=== PATIENT | male | born 1985 | race Caucasian/White ===

== ENCOUNTER 2025-01-16 02:17 | Emergency (ER) | payer MEDICARE, MEDICAID ==
[~2025-01-16] VITALS: Ht 172.7 cm; Wt 77.1 kg
[2025-01-16] MEDS: LORazepam 2MG/ML-1ML VIAL IV ONE (02:55)
--- NOTE | 2025-01-16 02:57 | ED.PDOC ---
HPI (NEURO) HPI Comments 39-year-old, developmentally delayed male is brought in by brother/[facility] nurse for chief complaint of seizure-like activities. Per brother, patient had 2x sudden and provoked seizure-like activity episodes over the past 2-1/2 hours, this morning. Patient has a history of remote seizures in the past after being taken off psychiatric medications in 2011 both never given a permanent prescription aside from being treated with gabapentin, initially. No reported trauma or incontinence. No recent injuries or for pertinent events or history endorsed. No further acute symptoms reported. Time Seen by MD: 02:30 Reviewed Notes: Nurses Notes, Speech And Language Clinician Notes, Medications, Allergies Information Source: Relative (Sibling) Mode of Arrival: EMS Timing: Hours Duration: Minutes Past Medical History PAST MEDICAL HISTORY: Seizures Past Medical History (Other): Developmentally delayed Surgical History: Denies all surgeries Family History Family History: Unobtainable Social History Smoker: Non-Smoker Alcohol: Denies ETOH Use Drugs: Denies Drug Use Lives In: Home, Assisted Care All Other Systems: Reviewed and Negative (Comprehensive review of systems are negative unless otherwise stated in HPI) Physical Exam General Appearance: No Apparent Distress, Normal, Other (Developmentally delayed ) HEENT: Normal ENT Inspection, Pharynx Normal, TMs Normal Neck: Full Range of Motion, Non-Tender, Normal, Normal Inspection Respiratory: Chest Non-Tender, Lungs Clear, No Accessory Muscle Use, No Respiratory Distress, Normal Breath Sounds Cardiovascular: No Edema, No JVD, No Murmur, No Gallop, Normal Peripheral Pulses, Regular Rate/Rhythm Breast Exam: Deferred Gastrointestinal: No Organomegaly, Non Tender, No Pulsatile Mass, Normal Bowel Sounds, Soft Genitalia: Deferred Pelvic: Deferred Rectal: Deferred Extremities: No calf tenderness, Normal capillary refill, Normal inspection, Normal range of motion, Non-tender, No pedal edema Musculoskeletal : Apperance: Normal Neurologic: Alert, 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 Was a procedure done?: No Differential Diagnosis (SZ) Seizure: Hyperventilation, Psychogenic Seizure, Alcohol Withdrawl, Anticonvulsant Withdrawl, Hypocalcemia, Hypoglycemia, Hyponatremia, Hypoxemia, Idiopathic, Encephalopathy, Epilepsy-Break Through, Epilepsy-Status X-Ray, Labs, Meds, VS Vital Signs Date Time Temp Pulse Resp B/P (MAP) Pulse Ox O2 Delivery O2 Flow Rate FiO2 01/16/25 04:07 97.5 100 16 130/91 (104) 98 97.5 01/16/25 03:50 97.2 92 18 103/90 (94) 99 97.2 01/16/25 03:49 95 18 98 Room Air* 0 21 01/16/25 02:37 97.1 91 18 114/96 98 97.1 Lab Test 01/16/25 03:00 Range/Units White Blood Count 6.2 4.4-10.8 10^3/uL Red Blood Count 5.26 4.5-5.90 10^6/uL Hemoglobin 16.2 13.5-17.5 g/dL Hematocrit 45.8 41.0-53.0 % Mean Corpuscular Volume 87.2 80.0-100.0 fL Mean Corpuscular Hemoglobin 30.9 28.0-32.0 pg Mean Corpuscular Hemoglobin Concent 35.4 32.0-36.0 g/dL Red Cell Distribution Width 13.4 11.8-14.3 % Platelet Count 301 140-450 10^3/uL Mean Platelet Volume 7.1 6.9-10.8 fL Neutrophils (%) (Auto) 73.1 37.0-80.0 % Lymphocytes (%) (Auto) 16.7 10.0-50.0 % Monocytes (%) (Auto) 8.7 0.0-12.0 % Eosinophils (%) (Auto) 0.9 0.0-7.0 % Basophils (%) (Auto) 0.6 0.0-2.0 % Neutrophils # (Auto) 4.5 1.6-8.6 10 ^3/uL Lymphocytes # (Auto) 1.0 0.4-5.4 10 ^3/uL Monocytes # (Auto) 0.5 0-1.3 10 ^3/uL Eosinophils # (Auto) 0.1 0-0.8 10 ^3/uL Basophils # (Auto) 0 0-0.2 10 ^3/uL Nucleated Red Blood Cells 0.2 % Sodium Level 139 136-145 mmol/L Potassium Level 4.2 3.5-5.1 mmol/L Chloride Level 106 98-107 mmol/L Carbon Dioxide Level 26 20-31 mmol/L Anion Gap 7 5-15 Blood Urea Nitrogen 7 L 9-23 mg/dL Creatinine 0.83 0.700-1.30 mg/dL Glomerular Filtration Rate Calc 113 >90 mL/min BUN/Creatinine Ratio 8.4 L 10.0-20.0 Serum Glucose 106 74-106 mg/dL Calcium Level 9.3 8.7-10.4 mg/dL Magnesium Level 2.1 1.6-2.6 mg/dL Total Bilirubin 0.7 0.2-1.0 mg/dL Aspartate Amino Transferase (AST) 31 13-40 U/L Alanine Aminotransferase (ALT) 55 H 7-40 U/L Alkaline Phosphatase 75 46-116 U/L Total Protein 7.3 5.7-8.2 g/dL Albumin 4.4 3.2-4.8 g/dL Plasma/Serum Blood Alcohol < 3.0 <10 mg/dL Current Medications Medications (Trade) Dose Ordered Sig/Leighton Route Start Time Stop Time Status Last Admin Lorazepam (Ativan Inj) 1 mg ONCE ONCE IV 01/16/25 02:45 01/16/25 02:46 DC 01/16/25 02:55 Lorazepam (Ativan Inj) 1 mg ONCE ONCE IM 01/16/25 03:30 01/16/25 03:31 DC 01/16/25 03:39 Haloperidol Lactate (Haldol) 5 mg ONCE ONCE IM 01/16/25 03:30 01/16/25 03:31 DC 01/16/25 03:45 Time of 1ST Reevaluation: 03:00 Reevaluation 1ST: Unchanged Patient Education/Counseling: Other (Developmentally delayed ) Family Education/Counseling: Diagnosis, Treatment Departure 1 Departure Time of Disposition: 04:29 Impression: Primary Impression: Developmental delay Additional Impressions: Seizure Seizure disorder Disposition: 01 HOME / SELF CARE / HOMELESS Condition: Stable Discharged With: Relative Critical Care Note Critical Care Time?: No Stability Stability form required: No Heart Score Heart Score: Heart Score Response (Comments) Value History N/A 0 EKG N/A 0 Age N/A 0 Risk Factors N/A 0 Troponin N/A 0 Total 0 I personally scribed for ALICIA NOEL MD ([email or web address]) on 01/16/25 at 02:57. Electronically submitted by Bob Krishna ([email or web address]). I personally scribed for ALICIA NOEL MD ([email or web address]) on 01/16/25 at 03:04. Electronically submitted by Bob Krishna ([email or web address]). ALICIA NOEL MD Jan 16, 2025 02:57
[2025-01-16 03:23] LABS: Hematocrit 45.8 % (41.0-53.0); Hemoglobin 16.2 g/dL (13.5-17.5); Mean Corpuscular Hemoglobin 30.9 pg (28.0-32.0); Mean Corpuscular Volume 87.2 fL (80.0-100.0); Nucleated Red Blood Cells % 0.2 %
[2025-01-16 03:33] LABS: Albumin 4.4 g/dL (3.2-4.8); Alkaline Phosphatase 75 U/L (46-116); Anion Gap 7 (5-15); BUN/Creatinine Ratio 8.4 (10.0-20.0); Calcium 9.3 mg/dL (8.7-10.4); Carbon Dioxide 26 mmol/L (20-31); Chloride 106 mmol/L (98-107); Magnesium 2.1 mg/dL (1.6-2.6); Potassium 4.2 mmol/L (3.5-5.1); Sodium 139 mmol/L (136-145); Total Protein 7.3 g/dL (5.7-8.2)
[2025-01-16 03:34] LABS: Bilirubin, Total 0.7 mg/dL (0.2-1.0)
[2025-01-16 03:35] LABS: Alanine Aminotransferase 55 U/L (7-40); Blood Urea Nitrogen 7 mg/dL (9-23); Glucose 106 mg/dL (74-106)
[2025-01-16] MEDS: LORazepam 2MG/ML-1ML VIAL IM ONE (03:39)
[2025-01-16] MEDS: HALOPERIDOL LACTATE 5 MG/ML INJ VIAL IM ONE (03:45)
[2025-01-16 03:49] VITALS: PULSE 95; RESP 18; O2SAT 98
[2025-01-16 04:07] VITALS: BP 130/91; PULSE 100; RESP 16; TEMP 97.5; O2SAT 98
== END 2025-01-16 04:09 | disposition home or self-care (01) ==
LOC: ER 02:17
DX: G40.909 Epilepsy, unspecified, not intractable, without status epilepticus (principal); R62.50 Unspecified lack of expected normal physiological development in childhood; Z79.899 Other long term (current) drug therapy
CPT/HCPCS: 36415; 80053; 80320; 83735; 85025; 96372; 96374; 99284; J1630; J2060